=== PATIENT | male | born 1995 | race Caucasian/White ===

== ENCOUNTER 2018-08-15 10:51 | Emergency (ER) | payer OTHER ==
[2018-08-15 11:01] VITALS: BP 149/79; PULSE 81; TEMP 98.5; BMI 25.8
[2018-08-15] MEDS ORDERED: IBUPROFEN 400 MG TABLET (FP) PO ONE ×2 (11:58→12:06)
--- NOTE | 2018-08-15 12:30 | PDOC ---
History of Present Illness - General Chief Complaint: Injury Stated Complaint: RT HAND INJURY Time Seen by Provider: 08/15/18 11:14 History Source: Patient Exam Limitations: No Limitations Past History - Past Medical History Allergies/Adverse Reactions: Allergies Allergy/AdvReac Type Severity Reaction Status Date / Time No Known Allergies Allergy Verified 08/15/18 10:58 Home Medications: Ambulatory Orders NK [No Known Home Medication] 08/15/18 COPD: No - Immunization History Immunization Up to Date: Yes - Suicide/Smoking/Psychosocial Hx Smoking History: Never smoked Hx Alcohol Use: Yes Drug/Substance Use Hx: No *Physical Exam - Vital Signs Last Vital Signs Temp Pulse Resp BP Pulse Ox 98.5 F 81 18 149/79 100 08/15/18 10:59 08/15/18 10:59 08/15/18 10:59 08/15/18 10:59 08/15/18 10:59 - Physical Exam General Appearance: No: Apparent Distress Respiratory/Chest: positive: Lungs Clear, Normal Breath Sounds. negative: Respiratory Distress Cardiovascular: positive: Regular Rhythm, Regular Rate, S1, S2. negative: Murmur Musculoskeletal: positive: Decreased Range of Motion, Other (+Bruise along palmar surface of R hand, +swelling along lateral surface of R hand with TTP along base of 4th and 5th metacarpals, FROM of R wrist, no deformity of wrist or forearm noted) Extremity: positive: Normal Capillary Refill Neurologic: positive: Fully Oriented, Alert, Normal Mood/Affect. negative: Numbness, Sensory Deficit Moderate Sedation - Procedure Monitoring Vital Signs: Procedure Monitoring Vital Signs Temperature 98.5 F 08/15/18 10:59 Pulse Rate 81 08/15/18 10:59 Respiratory Rate 18 08/15/18 10:59 Blood Pressure 149/79 08/15/18 10:59 O2 Sat by Pulse Oximetry (%) 100 08/15/18 10:59 Procedures - Splinting Splint Location: Right: Hand Pre-Proc Neuro Vasc Exam: normal Hand-Made Type: orthoglass Splint Type: Yes: Ulnar Post-Proc Neuro Vasc Exam: normal Ricky Bandage: yes Sling: No Complications: No ED Treatment Course - RADIOLOGY Radiology Studies Ordered: Category Date Time Status HAND- RIGHT [RAD] Stat Radiology 08/15/18 11:58 Taken WRIST- RIGHT [RAD] Stat Radiology 08/15/18 11:58 Taken - Medications Given in the ED: ED Medications Discontinued Medications Generic Name Dose Route Start Last Admin Trade Name Briana PRN Reason Stop Dose Admin Ibuprofen 800 mg 08/15/18 11:58 08/15/18 12:09 Motrin - PO 08/15/18 11:59 800 mg ONCE ONE Administration Medical Decision Making - Medical Decision Making 22 y/o M presents with R hand swelling and pain after punching a wall last night (states was intoxicated last night and it was an accident). Patient did not take anything for pain. Concern for possible boxers fracture; sensation intact on PE Plan: R hand and wrist xray, Motrin, reassess 08/15/18 12:30 Xray shows fracture at base of 4th and 5th metacarpals Case d/w ortho PA Cesar Knott, who recommended ulnar gutter splint Patient to be referred to Dr. Mirza for follow-up Patient's pain controlled with Motrin 08/15/18 13:28 *DC/Admit/Observation/Transfer Diagnosis at time of Disposition: Fracture, metacarpal Qualifiers: Encounter type: initial encounter Metacarpal bone: fourth Fracture type: closed Metacarpal location: base Fracture alignment: nondisplaced Laterality: right Qualified Code(s): S62.344A - Nondisplaced fracture of base of fourth metacarpal bone, right hand, initial encounter for closed fracture - Discharge Dispostion Disposition: HOME Condition at time of disposition: Good Decision to Admit order: No - Referrals Referrals: Noy Pedraza MD [Primary Care Provider] - 3 days Patrick Mirza MD [Staff Physician] - Call tomorrow - Patient Instructions Printed Discharge Instructions: DI for Boxer's Fracture, How to Take Care of Your Splint Additional Instructions: Thank you for choosing [facility]. It was a pleasure taking care of you. You were found to have fracture of your 4th and 5th metacarpals for which a splint was placed You were referred to orthopedics, Dr. Juares Keep your splint dry You may take Motrin 600 mg every 4 hours by mouth as needed for mild to moderate pain. Take Motrin with food. Return to the Emergency Department if your symptoms worsen or persist, you have fever, change in color of extremities, unable to feel extremities, severe pain of extremities or other concerning symptoms. - Post Discharge Activity
== END 2018-08-15 13:35 | disposition home or self-care (01) ==
LOC: JERFT 10:51
PROC: 2W3DX1Z Immobilization of Left Lower Arm using Splint (ICD-10-PCS; principal; 2018-08-15)
DX: S62.344A Nondisplaced fracture of base of fourth metacarpal bone, right hand, initial encounter for closed fracture (principal); W22.01XA Walked into wall, initial encounter; Y93.89 Activity, other specified; Y92.89 Other specified places as the place of occurrence of the external cause
CPT/HCPCS: 73110-TC-RT-FY; 73130-TC-RT-FY; 99282-25